=== PATIENT | female | born 1985 | race Caucasian/White ===

== ENCOUNTER 2017-03-27 13:32 | Emergency (ER) | payer BC ==
[2017-03-27 13:48] VITALS: BP 130/92; PULSE 95; TEMP 98.8; BMI 25.0
--- NOTE | 2017-03-27 14:03 | PDOC ---
History of Present Illness - General Chief Complaint: Wound Infection Stated Complaint: RIGHT SECOND TOE INFECTION PAIN Time Seen by Provider: 03/27/17 13:45 History Source: Patient Exam Limitations: No Limitations - History of Present Illness Initial Comments: 03/27/17 13:45 Pedicure a couple of days ago, now has paronychiae to right second toe. Timing/Duration: other (past three days) Modifying Factors: improves with: other (antibiotics not helping (BACTRIM DS)) Associated Symptoms: denies: denies symptoms Past History - Past Medical History Allergies/Adverse Reactions: Allergies Allergy/AdvReac Type Severity Reaction Status Date / Time No Known Allergies Allergy Verified 03/27/17 13:34 Home Medications: Ambulatory Orders Sulfamethoxazole/Trimethoprim [Bactrim Ds -] 1 tab PO DAILY 03/27/17 Cardiac Disorders: Yes (MVP) - Immunization History Immunization Up to Date: No - Psycho/Social/Smoking Cessation Hx Anxiety: No Suicidal Ideation: No Smoking Status: Yes Smoking History: Never smoked Have you smoked in the past 12 months: No Number of Cigarettes Smoked Daily: 0 Hx Alcohol Use: No Drug/Substance Use Hx: No Substance Use Type: None Review of Systems - Review of Systems Able to Perform ROS?: Yes Is the patient limited Beninese proficient: No Constitutional: No: Symptoms Reported HEENTM: No: Symptoms Reported Respiratory: No: Symptoms reported, Hemoptysis Cardiac (ROS): No: Lightheadedness : No: Symptoms Reported Musculoskeletal: No: Symptoms Reported Integumentary: Yes: Symptoms Reported, See HPI Neurological: No: Symptoms reported Endocrine: No: Symptoms Reported Hematologic/Lymphatic: No: Symptoms Reported All Other Systems: Reviewed and Negative *Physical Exam - Physical Exam Comments: 03/27/17 14:04 Paronychia to right second toe. Exam otherwise unremarkable Skin cleansed with Betadine- 2%Plain Lidocaine used for anesthesia (1cc) local infiltration #11 Blade used to open/unroof the lesion about 1cc of nuria pus expressed, then some bleeding Patient tolerated procedure without any difficulty and felt much better afterwards. *DC/Admit/Observation/Transfer Diagnosis at time of Disposition: Paronychia, Encounter for incision and drainage procedure - Discharge Dispostion Disposition: HOME Condition at time of disposition: Good Admit: No - Patient Instructions Printed Discharge Instructions: DI for Wound Infection Additional Instructions: Hope- I am so sorry this happened to you. It should be over now. Allow it to drain and keep it moist with antibiotic ointment and a bandage. Soak it a few times a day. Wear the post op shoe for comfort. It was a pleasure to care for you. Best- Dr. Nuria Owens
[2017-03-27] MEDS ORDERED: BACITRACIN/POLYMYXIN B SULFATE 15 GM TUBE TP SCH (14:15)
== END 2017-03-27 14:35 | disposition home or self-care (01) ==
LOC: FER 13:32
PROC: 0H9MXZZ Drainage of Right Foot Skin, External Approach (ICD-10-PCS; principal; 2017-03-27)
DX: L03.031 Cellulitis of right toe (principal)
CPT/HCPCS: 99281-25

== ENCOUNTER 2017-09-12 14:58 | Emergency (ER) | payer OTHER, BC ==
--- NOTE | 2017-09-12 15:11 | PDOC ---
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 An #11 blade had dry blood on it. As pt was cleaning up instrument, had accidentally nicked her left thumb. Pt subsequently washed out in sink. Last tetanus she believes was within 5 years. Came to ED. Timing: just prior to arrival Severity: mild Exposed Location: Left: Hand(s) (left thumb) Assessing Significant Risk PEP: Yes Non-intact Skin, Yes Blood Past History - Past Medical History Allergies/Adverse Reactions: Allergies Allergy/AdvReac Type Severity Reaction Status Date / Time No Known Allergies Allergy Verified 03/27/17 13:34 Home Medications: Ambulatory Orders Sulfamethoxazole/Trimethoprim [Bactrim Ds -] 1 tab PO DAILY 03/27/17 Cardiac Disorders: Yes (MVP) - Immunization History Immunization Up to Date: No - Suicide/Smoking/Psychosocial Hx Smoking Status: Yes Smoking History: Never smoked Have you smoked in the past 12 months: No Number of Cigarettes Smoked Daily: 0 Hx Alcohol Use: No Drug/Substance Use Hx: No Substance Use Type: None Review of Systems - Review of Systems Able to Perform ROS?: Yes Comments:: 09/12/17 15:09 GENERAL/CONSTITUTIONAL: No fever, weakness. HEAD, EYES, EARS, NOSE AND THROAT: No change in vision. No ear pain or discharge. No sore throat. CARDIOVASCULAR: No chest pain or shortness of breath. RESPIRATORY: No cough, wheezing, or hemoptysis. GASTROINTESTINAL: No abdominal pain, nausea, vomiting, diarrhea, or decreased PO intolerance. GENITOURINARY: No dysuria, frequency, or change in urination. MUSCULOSKELETAL: No joint or muscle swelling or pain. No neck or back pain. SKIN: No rash NEUROLOGIC: No headache, vertigo, loss of consciousness, or change in strength/ sensation. ENDOCRINE: No increased thirst. No abnormal weight change. HEMATOLOGIC/LYMPHATIC: No anemia, easy bleeding, or history of blood clots. ALLERGIC/IMMUNOLOGIC: No hives or skin allergy. *Physical Exam - Physical Exam Comments: 09/12/17 15:09 GENERAL: Awake, alert, and fully oriented, in no acute distress. HEAD: No signs of trauma EYES: PERRLA, EOMI, sclera anicteric, conjunctiva clear ENT: Auricles normal inspection, hearing grossly normal, nares patent NECK: Normal ROM, supple EXTREMITIES: Normal range of motion, no edema. No clubbing or cyanosis. No cords, erythema, or tenderness NEUROLOGICAL: Cranial nerves II through XII grossly intact. Normal speech, normal gait SKIN: Warm, Dry, normal turgor, no rashes or lesions noted. No lacerations or punctures Medical Decision Making - Medical Decision Making 09/12/17 15:11 Post exposure from #11 blade with dry blood. Appears to be percutaneous. No lacerations or punctures. Nursing matrix supervisor contacted. Baseline labs ordered including HIV and Hepatitis panel. PEP prophylaxis discussed with the patient as potential option. Patient defers on PEP prophylaxis at the moment. 09/12/17 15:30 Will have patient fill out hospital paperwork and have her come back for the results given that she's an employee. *DC/Admit/Observation/Transfer Diagnosis at time of Disposition: History of exposure to blood or body fluid - Discharge Dispostion Disposition: HOME Condition at time of disposition: Stable Admit: No - Referrals - Patient Instructions Printed Discharge Instructions: How to Handle Body Fluid Exposure -- Healthcare Worker Additional Instructions: Please call back [phone] for the results of your blood tests. Please contact your matrix supervisor for further instructions - Post Discharge Activity Forms/Work/School Notes: Back to Work
[2017-09-12 15:51] VITALS: BP 121/63; PULSE 71; TEMP 98.4; BMI 22.7
[2017-09-12 15:58] LABS: HEMATOCRIT 40.5 % (32.4-45.2); HEMOGLOBIN 14.5 GM/dl (10.7-15.3); MCH 31.8 pg (25.7-33.7); MCHC 35.8 g/dl (32.0-36.0); MEAN CELL VOLUME 88.7 fl (80-96); MEAN PLT VOLUME 9.3 fl (7.5-11.1); PLATELET COUNT 268 K/MM3 (134-434); RBC 4.56 M/mm3 (3.60-5.2); RDW 11.6 % (11.6-15.6); WHITE BLOOD COUNT 10.4 K/mm3 (4.0-10.8)
[2017-09-12 16:00] LABS: ALBUMIN 4.6 g/dl (3.5-5.0); ALK PHOS 39 U/L (32-92); ANION GAP 6 (8-16); BLOOD UREA NITROGEN 10 mg/dl (7-18); CALCIUM 9.4 mg/dl (8.4-10.2); CHLORIDE 103 mmol/L (98-107); CHOLESTEROL 194 mg/dl; CO2 25 mmol/L (22-28); CREATININE 0.8 mg/dl (0.6-1.3); GAMMA GLUTAMYL TRANSPEPTIDASE 12 U/L (3-64); GLUCOSE,RANDOM 93 mg/dl (74-106); LDH 145 U/L (91-180); PHOSPHOROUS 3.2 mg/dl (2.5-4.6); POTASSIUM 4.1 mmol/L (3.5-5.1); SGOT/AST 20 U/L (10-42); SGPT/ALT 16 U/L (10-40); SODIUM 134 mmol/L (136-145); TRIGLYCERIDES 424 mg/dl (35-160); URIC ACID 4.3 mg/dl (2.6-7.2)
[2017-09-12 16:34] LABS: BILIRUBIN,TOTAL 0.2 mg/dl (0.2-1.0)
[2017-09-12 17:33] LABS: PLATELET ESTIMATE ADEQUATE
[2017-09-13 14:10] LABS: HBsAG SCREEN Negative (Negative); HEPATITIS B CORE ANTIBODY Negative (Negative)
== END 2017-09-12 16:00 | disposition home or self-care (01) ==
LOC: FER 14:58
DX: Z77.21 Contact with and (suspected) exposure to potentially hazardous body fluids (principal); X58.XXXA Exposure to other specified factors, initial encounter; Y93.89 Activity, other specified; Y92.238 Other place in hospital as the place of occurrence of the external cause; Y99.0 Civilian activity done for income or pay
CPT/HCPCS: 36415; 80053; 82465; 82977; 83615; 84100; 84478; 84550; 85025; 86704; 86803; 87340; 87389; 99282-25

== ENCOUNTER 2020-06-26 19:56 | Emergency (ER) | payer OTHER | END 2020-06-26 20:51 | disposition home or self-care (01) | LOC: JVIRT 19:56 | DX: Z03.818 Encounter for observation for suspected exposure to other biological agents ruled out (principal) | CPT/HCPCS: 87804; C9803; G2012-GT; Q3014-GT; U0003 ==

== ENCOUNTER 2020-06-30 14:06 | Emergency (ER) | payer OTHER ==
[2020-06-30 14:12] VITALS: BMI 31.3
[2020-06-30] MEDS ORDERED: LACTATED RINGERS SOLUTION 1000 ML INFUS.BAG IV ONE (15:10)
[2020-06-30 15:35] LABS: EOS % 0.3 % (0-4.5); HEMATOCRIT 40.5 % (32.4-45.2); HEMOGLOBIN 13.8 GM/dl (10.7-15.3); MCH 31.8 pg (25.7-33.7); MCHC 34.1 g/dl (32.0-36.0); MEAN CELL VOLUME 93.2 fl (80-96); MEAN PLT VOLUME 9.4 fl (7.5-11.1); MONO % 10.3 % (3.8-10.2); NEUT % 77.4 % (42.8-82.8); PLATELET COUNT 209 K/MM3 (134-434); RBC 4.34 M/mm3 (3.60-5.2); RDW 12.6 % (11.6-15.6)
[2020-06-30 15:44] LABS: INR 1.07 (0.82-1.09); PROTHROMBIN TIME (PATIENT) 11.9 SEC (10.2-13.0)
[2020-06-30 15:46] LABS: ALBUMIN 3.5 g/dl (3.4-5.0); BILIRUBIN,TOTAL 0.6 mg/dl (0.2-1); CALCIUM 9.2 mg/dl (8.5-10); CREATININE 0.5 mg/dl (0.55-1.3); POTASSIUM 3.9 mmol/L (3.5-5.1); TOT PROT 6.5 g/dl (6.4-8.2)
[2020-06-30 15:47] LABS: BILIRUBIN,DIRECT 0.1 mg/dL (0.0-0.2)
[2020-06-30 16:21] VITALS: BP 116/82; PULSE 97; TEMP 99.6
== END 2020-06-30 16:59 | disposition home or self-care (01) ==
LOC: FER 14:06
DX: R05 Cough (principal)
CPT/HCPCS: 36415; 80053; 81003; 82248; 82728; 83615; 85025; 85610; 85730; 86140; 93005; 99284-25; C9803; U0003

== ENCOUNTER 2021-05-26 15:08 | Emergency (ER) | payer OTHER ==
[2021-05-26] MEDS ORDERED: ALBUTEROL SO4 2.5/IPRATROPIUM 0.5 INH SOL 3 ML VIAL.NEB. NEB ONE ×2 (15:17)
[2021-05-26 15:36] VITALS: BP 121/84; PULSE 92; TEMP 97.9; BMI 25.8
== END 2021-05-26 16:09 | disposition home or self-care (01) ==
LOC: FER 15:08
PROC: 3E0F7GC Introduction of Other Therapeutic Substance into Respiratory Tract, Via Natural or Artificial Opening (ICD-10-PCS; principal; 2021-05-26)
DX: R06.2 Wheezing (principal)
CPT/HCPCS: 71046-TC-FY; 99283-25

== ENCOUNTER 2023-03-12 22:21 | Emergency (ER) | payer OTHER ==
[2023-03-12 22:25] VITALS: BMI 30.5
[2023-03-12] MEDS ORDERED: MAG HYDROX/AL HYDROX/SIMETH 30 ML UNIT-DOSE CUP PO ONE (22:41)
[2023-03-12] MEDS ORDERED: FAMOTIDINE 20 MG TABLET PO ONE (22:41)
[2023-03-12] MEDS ORDERED: MAG HYDROX/AL HYDROX/SIMETH 30 ML UNIT-DOSE CUP ONE (23:02)
[2023-03-12] MEDS ORDERED: FAMOTIDINE 20 MG TABLET ONE (23:02)
[2023-03-13 05:09] VITALS: BP 129/70; PULSE 93; RESP 20; TEMP 97.7
== END 2023-03-13 00:30 | disposition home or self-care (01) ==
LOC: JER 22:21
DX: O99.613 Diseases of the digestive system complicating pregnancy, third trimester (principal); K21.9 Gastro-esophageal reflux disease without esophagitis; O26.893 Other specified pregnancy related conditions, third trimester; R10.13 Epigastric pain; Z3A.38 38 weeks gestation of pregnancy
CPT/HCPCS: 76705-TC; 76815; 93005; 93010; 99284-25

== ENCOUNTER 2023-04-26 16:30 | Emergency (ER) | payer OTHER ==
[2023-04-26 16:47] VITALS: BP 130/82; PULSE 90; RESP 16; TEMP 98.1; BMI 29.1
[2023-04-26] MEDS ORDERED: FAMOTIDINE 20 MG/50 ML IVPB 20 MG/50 ML MG IVPB ONE ×2 (16:50→16:57)
[2023-04-26] MEDS ORDERED: MAG HYDROX/AL HYDROX/SIMETH -MYLANTA- ORAL SUSPENSION PO ONE (16:50)
[2023-04-26] MEDS ORDERED: MAG HYDROX/AL HYDROX/SIMETH 30 ML UNIT-DOSE CUP ONE (16:57)
[2023-04-26 17:53] LABS: HEMATOCRIT 43.1 % (32.4-45.2); HEMOGLOBIN 14.2 G/dL (10.7-15.3); MCH 29.4 pg (25.7-33.7); MCHC 32.9 g/dl (32.0-36.0); MEAN CELL VOLUME 89.5 fl (80-96); MEAN PLT VOLUME 9.4 fl (7.5-11.1); PLATELET COUNT 283.7 10^3/uL (134-434); RBC 4.82 10^6/uL (3.60-5.2); RDW 13.7 % (11.6-15.6); WHITE BLOOD COUNT 12.4 10^3/uL (4.0-10.8)
[2023-04-26 18:11] LABS: ALBUMIN 4.7 g/dl (3.4-5.0); BILIRUBIN,TOTAL 0.7 mg/dl (0.2-1); BLOOD UREA NITROGEN 16.8 mg/dl (7-18); CALCIUM 9.8 mg/dl (8.5-10.1); CREATININE 0.8 mg/dl (0.6-1.3); POTASSIUM 4.1 mmol/L (3.5-5.1); SGPT/ALT 119.6 U/L (7-52); TOT PROT 7.2 g/dl (6.4-8.2)
[2023-04-26] MEDS ORDERED: LIDOCAINE VISCOUS 2% ORAL/TOP 15 ML UNIT-DOSE CUP MM ONE (18:54)
[2023-04-26] MEDS ORDERED: LIDOCAINE VISCOUS 2% ORAL/TOP 15 ML UNIT-DOSE CUP ONE (18:54)
== END 2023-04-26 19:01 | disposition home or self-care (01) ==
LOC: FER 16:30
PROC: 3E033GC Introduction of Other Therapeutic Substance into Peripheral Vein, Percutaneous Approach (ICD-10-PCS; principal; 2023-04-26)
DX: R10.13 Epigastric pain (principal); R11.2 Nausea with vomiting, unspecified
CPT/HCPCS: 36415; 76705-TC; 80053; 83690; 85025; 99284-25

== ENCOUNTER 2023-05-29 04:36 | Emergency (ER) | payer OTHER ==
[2023-05-29 04:45] VITALS: BP 118/81; PULSE 98; RESP 18; TEMP 97.4; BMI 28.1
[2023-05-29] MEDS ORDERED: FAMOTIDINE 20 MG/50 ML IVPB 20 MG/50 ML MG IVPB ONE ×2 (04:51→05:01)
[2023-05-29] MEDS ORDERED: ACETAMINOPHEN 1000 MG/100 ML BAG IVPB ONE (04:51)
[2023-05-29] MEDS ORDERED: ONDANSETRON 4 MG/2 ML VIAL IVPUSH ONE (04:51)
[2023-05-29] MEDS ORDERED: SODIUM CHLORIDE 0.9% 500 ML INFUS.BAG IV ONE (04:53)
[2023-05-29] MEDS ORDERED: SUCRALFATE 1 GM/10 ML UNIT DOSE CUPS PO ONE (04:53)
[2023-05-29] MEDS ORDERED: ACETAMINOPHEN INJECTION 100 ML IVPB ONE (05:01)
[2023-05-29] MEDS ORDERED: ONDANSETRON 4 MG/2 ML VIAL ONE (05:01)
[2023-05-29] MEDS ORDERED: SUCRALFATE 1 GM TABLET (FP) ONE (05:14)
[2023-05-29 05:39] LABS: BASO % 0.3 % (0-2.0); EOS % 2.2 % (0-4.5); HEMATOCRIT 42.5 % (32.4-45.2); LYMPH % 26.8 % (8-40); MCH 28.8 pg (25.7-33.7); MCHC 32.9 g/dl (32.0-36.0); MEAN CELL VOLUME 87.5 fl (80-96); MEAN PLT VOLUME 8.6 fl (7.5-11.1); MONO % 6.1 % (3.8-10.2); NEUT % 64.6 % (42.8-82.8); PLATELET COUNT 245 10^3/uL (134-434); RBC 4.86 M/mm3 (3.60-5.2); RDW 13.3 % (11.6-15.6)
[2023-05-29 05:51] LABS: POTASSIUM 3.6 mmol/L (3.5-5.1)
[2023-05-29 05:55] LABS: ALBUMIN 4.2 g/dl (3.4-5.0); BLOOD UREA NITROGEN 20.3 mg/dL (7-18); CALCIUM 9.1 mg/dL (8.5-10.1); MAGNESIUM 2.1 mg/dL (1.8-2.4)
[2023-05-29 05:57] LABS: CREATININE 0.8 mg/dL (0.55-1.3)
[2023-05-29 05:59] LABS: BILIRUBIN,TOTAL 0.4 mg/dL (0.2-1); TOT PROT 7.7 g/dl (6.4-8.2)
[2023-05-29 06:34] LABS: INR 0.95 (0.83-1.09)
== END 2023-05-29 10:10 | disposition home or self-care (01) ==
LOC: JER 04:36
PROC: 3E033GC Introduction of Other Therapeutic Substance into Peripheral Vein, Percutaneous Approach (ICD-10-PCS; principal; 2023-05-29)
PROC: 3E033GC Introduction of Other Therapeutic Substance into Peripheral Vein, Percutaneous Approach (ICD-10-PCS; 2023-05-29)
PROC: 3E033GC Introduction of Other Therapeutic Substance into Peripheral Vein, Percutaneous Approach (ICD-10-PCS; 2023-05-29)
DX: R10.13 Epigastric pain (principal); R11.2 Nausea with vomiting, unspecified
CPT/HCPCS: 36415; 76705-TC; 80053; 83605; 83690; 83735; 84703; 85025; 85610; 85730; 86850; 86900; 86901

== ENCOUNTER 2023-06-10 13:10 | Emergency (ER) | payer OTHER ==
[2023-06-10] MEDS ORDERED: ONDANSETRON 4 MG/2 ML VIAL ONE (13:23)
[2023-06-10] MEDS ORDERED: FAMOTIDINE 20 MG/50 ML IVPB 20 MG/50 ML MG IVPB ONE ×2 (13:23→13:34)
[2023-06-10] MEDS ORDERED: ACETAMINOPHEN INJECTION 100 ML IVPB ONE (13:23)
[2023-06-10 13:31] VITALS: BMI 28.1
[2023-06-10] MEDS ORDERED: ONDANSETRON 4 MG/2 ML VIAL IVPUSH ONE (13:34)
[2023-06-10] MEDS ORDERED: ACETAMINOPHEN 1000 MG/100 ML BAG IVPB ONE (13:34)
[2023-06-10] MEDS ORDERED: SODIUM CHLORIDE 0.9% 1000 ML INFUS.BAG IV ONE (13:34)
[2023-06-10 14:14] LABS: INR 1.11 (0.83-1.09); PROTHROMBIN TIME (PATIENT) 12.9 SEC (9.7-13.0)
[2023-06-10 14:17] LABS: ACTIVATED PTT 28.4 SECONDS (25.2-36.5)
[2023-06-10 14:22] LABS: HEMATOCRIT 45.9 % (32.4-45.2); HEMOGLOBIN 15.2 G/dL (10.7-15.3); MCH 29.3 pg (25.7-33.7); MCHC 33.1 g/dl (32.0-36.0); MEAN CELL VOLUME 88.6 fl (80-96); MEAN PLT VOLUME 9.5 fl (7.5-11.1); PLATELET COUNT 245.8 10^3/uL (134-434); RBC 5.18 10^6/uL (3.60-5.2); RDW 13.9 % (11.6-15.6); WHITE BLOOD COUNT 14.9 10^3/uL (4.0-10.8)
[2023-06-10 14:34] LABS: ALBUMIN 4.9 g/dl (3.4-5.0); BILIRUBIN,TOTAL 1.1 mg/dl (0.2-1); CALCIUM 10.3 mg/dl (8.5-10.1); CREATININE 0.8 mg/dl (0.6-1.3); TOT PROT 7.5 g/dl (6.4-8.2)
[2023-06-10] MEDS ORDERED: CEFTRIAXONE 1 GM in DEXTROSE 5%-WATER - 100 ML IVPB ONE (15:03)
[2023-06-10] MEDS ORDERED: cefTRIAXone SODIUM 1 GM VIAL ONE (15:08)
[2023-06-10] MEDS ORDERED: ONDANSETRON 4 MG/2 ML VIAL IVPUSH PRN (15:57)
[2023-06-10] MEDS ORDERED: KETOROLAC TROMETHAMINE 30 MG/1 ML VIAL IVPUSH PRN (15:58)
[2023-06-10] MEDS ORDERED: LACTATED RINGERS SOLUTION 1,000 ML/1,000 ML INFUS.BAG IV SCH (16:00)
[2023-06-10] MEDS ORDERED: ALBUTEROL SO4 HFA INHALER IH PRN (16:02)
[2023-06-10 18:59] VITALS: BP 112/59; PULSE 73; RESP 16; TEMP 97.3
== END 2023-06-10 19:02 | disposition left against medical advice (07) ==
LOC: FER 13:10
PROC: 3E03329 Introduction of Other Anti-infective into Peripheral Vein, Percutaneous Approach (ICD-10-PCS; principal; 2023-06-10)
PROC: 3E033GC Introduction of Other Therapeutic Substance into Peripheral Vein, Percutaneous Approach (ICD-10-PCS; 2023-06-10)
PROC: 3E033NZ Introduction of Analgesics, Hypnotics, Sedatives into Peripheral Vein, Percutaneous Approach (ICD-10-PCS; 2023-06-10)
PROC: 3E033GC Introduction of Other Therapeutic Substance into Peripheral Vein, Percutaneous Approach (ICD-10-PCS; 2023-06-10)
DX: K81.9 Cholecystitis, unspecified (principal); R10.13 Epigastric pain; R10.11 Right upper quadrant pain
CPT/HCPCS: 36415; 74181-TC; 76705-TC; 80053; 80061; 82550; 83690; 84703; 85027; 85610; 85730; 86850; 86900; 86901; 99284-25